=== PATIENT | female | born 1965 | race Caucasian/White ===

== ENCOUNTER 2022-12-22 09:35 | Day surgery (SDC) | payer OTHER ==
[~2022-12-22] VITALS: Ht 157.5 cm; Wt 65.8 kg
[2022-12-22] MEDS ORDERED: diphenhydrAMINE 50 MG/ML VIAL ONE (10:25)
[2022-12-22] MEDS ORDERED: fentaNYL citrate 0.05 MG/ML VIAL ONE (10:25)
[2022-12-22] MEDS ORDERED: MIDAZOLAM 5 MG/5 ML VIAL ONE (10:26)
[2022-12-22] MEDS ORDERED: fentaNYL citrate 0.05 MG/ML VIAL IVP ONE (13:35)
[2022-12-22] MEDS ORDERED: MIDAZOLAM 2 MG/2 ML VIAL IVP ONE (13:35)
== END 2022-12-22 11:42 | disposition home or self-care (01) ==
LOC: MDS 09:35 → MMU 09:37 → MDS 11:42
PROVIDERS: ATTEND Internal Medicine Gastroenterology
DX: R13.10 Dysphagia, unspecified (principal); K21.9 Gastro-esophageal reflux disease without esophagitis; K29.70 Gastritis, unspecified, without bleeding; Z98.890 Other specified postprocedural states
CPT/HCPCS: 43239; J2250; J3010; 88305; 88312; 88313; 88342; J1200

== ENCOUNTER 2023-09-11 08:36 | Day surgery (SDC) | payer OTHER ==
[~2023-09-11] VITALS: Ht 154.9 cm; Wt 65.8 kg
[2023-09-11] MEDS ORDERED: fentaNYL citrate 0.05 MG/ML VIAL ONE (09:41)
[2023-09-11] MEDS: fentaNYL citrate 0.05 MG/ML VIAL IVP ONE (09:47)
[2023-09-11] MEDS: LIDOCAINE 2% 100 MG/5 ML UJET TP ONE (09:55)
== END 2023-09-11 11:10 | disposition home or self-care (01) ==
LOC: MOR 08:36 → MMU 08:37 → MOR 11:10
PROVIDERS: ATTEND Internal Medicine Gastroenterology
DX: Z09 Encounter for follow-up examination after completed treatment for conditions other than malignant neoplasm (principal); K63.5 Polyp of colon; K57.30 Diverticulosis of large intestine without perforation or abscess without bleeding; Z86.010 Personal history of colon polyps
CPT/HCPCS: 45385; J3010